=== PATIENT | female | born 1945 | race Caucasian/White ===

== ENCOUNTER 2019-12-31 21:00 | Emergency (ER) | payer OTHER ==
[~2019-12-31] VITALS: Ht 160 cm; Wt 58.1 kg
[2019-12-31 21:22] VITALS: Ht 160 cm; Wt 58.1 kg
[2019-12-31 21:26] VITALS: BP 94/57
== END 2019-12-31 21:27 | disposition other institution (70) ==
LOC: ED 21:00
DX: Z02.89 Encounter for other administrative examinations (principal)